=== PATIENT | female | born 1950 | race Caucasian/White ===

== ENCOUNTER 2018-10-28 14:28 | Emergency (ER) | payer OTHER ==
[~2018-10-28] VITALS: Ht 149.9 cm; Wt 59.0 kg
[~2018-10-28 14:28] MED LIST: CATAFLAM50 MG; CIPRO750 MG PO; FLEXERIL10 MG PO; MILLIPRED DP5 M1 PO; NABUMETONE750 MG PO; TUSSI PRES-B L120 M1 PO; ZITHROMAX TRI-500 MG PO
== END 2018-10-28 15:43 | disposition home or self-care (01) ==
LOC: ER 14:28
DX: M79.18 Myalgia, other site (principal)

== ENCOUNTER 2019-08-13 16:59 | Emergency (ER) | payer OTHER ==
[~2019-08-13] VITALS: Ht 154.9 cm; Wt 59.4 kg
[2019-08-14] MEDS ORDERED: LEVOTHYROXINE25 MCG (15:02)
[2019-08-14] MEDS ORDERED: PEPCID20 MG (15:03)
== END 2019-08-13 20:08 | disposition home or self-care (01) ==
LOC: ER 16:59
DX: K29.60 Other gastritis without bleeding (principal); R10.11 Right upper quadrant pain

== ENCOUNTER → 2019-08-14 | Emergency (ER) | payer OTHER ==
[~2019-08-14] VITALS: Ht 180.3 cm; Wt 59.4 kg
[~2019-08-14] MED LIST changes: +LEVOTHYROXINE25 MCG; +PEPCID20 MG
== END | disposition home or self-care (01) ==
LOC: ER 14:51
DX: Q44.6 Cystic disease of liver (principal); N28.1 Cyst of kidney, acquired; R10.13 Epigastric pain; R11.2 Nausea with vomiting, unspecified

== ENCOUNTER 2019-12-03 10:30 | Outpatient (CLI) | payer OTHER | END 2019-12-03 15:36 | disposition home or self-care (01) | LOC: MRI 10:30 | DX: M19.011 Primary osteoarthritis, right shoulder (principal); M19.012 Primary osteoarthritis, left shoulder | CPT/HCPCS: 73221 ==

== ENCOUNTER 2020-06-09 12:24 | Outpatient (CLI) | payer OTHER | END 2020-06-09 12:40 | disposition home or self-care (01) | LOC: MAMO-SONO 12:24 | DX: Z12.31 Encounter for screening mammogram for malignant neoplasm of breast (principal); R06.09 Other forms of dyspnea ==

== ENCOUNTER 2021-01-01 14:40 | Outpatient (CLI) | payer OTHER | END 2021-01-01 14:47 | disposition home or self-care (01) | LOC: NUCLEAR 14:40 | DX: Z13.820 Encounter for screening for osteoporosis (principal); M81.0 Age-related osteoporosis without current pathological fracture ==

== ENCOUNTER 2021-09-30 09:34 | Outpatient (CLI) | payer OTHER | END 2021-09-30 09:42 | disposition home or self-care (01) | LOC: MAMO-SONO 09:34 | DX: N64.59 Other signs and symptoms in breast (principal); Z12.31 Encounter for screening mammogram for malignant neoplasm of breast ==

== ENCOUNTER 2021-12-07 11:01 | Outpatient (CLI) | payer OTHER | END 2021-12-07 11:08 | disposition home or self-care (01) | LOC: TOM 11:01 | PROVIDERS: ATTEND Specialist | DX: N30.00 Acute cystitis without hematuria (principal) ==

== ENCOUNTER 2022-12-19 09:53 | Outpatient (CLI) | payer OTHER | END 2022-12-19 10:03 | disposition home or self-care (01) | LOC: MAMO-SONO 09:53 | DX: Z12.31 Encounter for screening mammogram for malignant neoplasm of breast (principal); Z85.3 Personal history of malignant neoplasm of breast ==

== ENCOUNTER 2022-12-23 12:38 | Outpatient (CLI) | payer OTHER | END 2022-12-23 12:40 | disposition home or self-care (01) | LOC: NUCLEAR 12:38 | DX: Z13.820 Encounter for screening for osteoporosis (principal) ==

== ENCOUNTER 2023-03-17 10:06 | Outpatient (CLI) | payer OTHER | END 2023-03-17 10:20 | disposition home or self-care (01) | LOC: MRI 10:06 | PROVIDERS: ATTEND Student in an Organized Health Care Education/Training Program | DX: M25.562 Pain in left knee (principal) | CPT/HCPCS: 73721 ==

== ENCOUNTER 2023-04-07 11:35 | Emergency (ER) | payer OTHER ==
[~2023-04-07] VITALS: Ht 149.9 cm; Wt 59.0 kg
== END 2023-04-07 15:36 | disposition home or self-care (01) ==
LOC: ER 11:35
DX: M25.562 Pain in left knee (principal); Z88.6 Allergy status to analgesic agent; E03.9 Hypothyroidism, unspecified; E78.49 Other hyperlipidemia; E78.00 Pure hypercholesterolemia, unspecified

== ENCOUNTER → 2023-07-20 | Outpatient (CLI) | payer OTHER | END | disposition home or self-care (01) | LOC: RAD 11:51 | DX: M54.2 Cervicalgia (principal) ==

== ENCOUNTER 2024-10-24 11:18 | Outpatient (CLI) | payer OTHER | END 2024-10-24 11:24 | disposition home or self-care (01) | LOC: RAD 11:18 | DX: M79.601 Pain in right arm (principal); M54.2 Cervicalgia; G62.9 Polyneuropathy, unspecified ==

== ENCOUNTER 2024-10-30 08:18 | Outpatient (CLI) | payer OTHER | END 2024-10-30 08:23 | disposition home or self-care (01) | LOC: MAMO-SONO 08:18 | DX: Z12.31 Encounter for screening mammogram for malignant neoplasm of breast (principal) ==

== ENCOUNTER → 2025-06-20 10:20 | Outpatient (CLI) | payer OTHER | END | disposition home or self-care (01) | LOC: NUCLEAR 10:20 | DX: M85.80 Other specified disorders of bone density and structure, unspecified site (principal); Z13.820 Encounter for screening for osteoporosis; M81.0 Age-related osteoporosis without current pathological fracture ==